=== PATIENT | female | born 1985 | race Two or more races ===

== ENCOUNTER 2018-11-05 16:50 | Emergency (ER) | payer SELFPAY ==
[~2018-11-05] VITALS: Ht 152.4 cm; Wt 56.7 kg
--- NOTE | 2018-11-05 16:52 | NUR ---
ED Nurse Note: Patient brought in by ambulance [id number] from friend's house c/o anxiety for 1 hour. patient is alert awake x4 ambulatory.
[2018-11-05] MEDS ORDERED: FLUOXETINE HCL10 MG ORAL (16:53)
--- NOTE | 2018-11-05 17:14 | NUR ---
ED Nurse Note: [facility] SENT TO LAB
[2018-11-05 17:46] LABS: APPEARANCE,URINE CLEAR; BILIRUBIN, URINE NEGATIVE (NEGATIVE); COLOR,URINE PALE YELLOW; GLUCOSE, URINE (UA) NEGATIVE (NEGATIVE); KETONES,URINE NEGATIVE (NEGATIVE); LEUKOCYTE ESTERASE ,URINE NEGATIVE (NEGATIVE); NITRITE,URINE NEGATIVE (NEGATIVE); PH,URINE 8 (4.5-8.0); PROTEIN,URINE NEGATIVE (NEGATIVE); UROBILINOGEN,URINE NORMAL MG/DL (0.0-1.0)
[2018-11-05 17:51] LABS: BASOPHILS % (AUTO) 0.8 % (0.0-2.0); EOSINOPHILS % (AUTO) 0.2 % (0.0-3.0); HEMATOCRIT 37.5 % (37.0-47.0); LYMPHOCYTES % (AUTO) 30.5 % (20.0-45.0); MEAN CORPUSCULAR VOLUME 88 FL (80-99); MONOCYTES % (AUTO) 6.9 % (1.0-10.0); NEUTROPHILS % (AUTO) 61.6 % (45.0-75.0); PLATELET COUNT 222 K/UL (150-450); RED BLOOD COUNT 4.27 M/UL (4.20-5.40); RED CELL DISTRIBUTION WIDTH 10.3 % (11.6-14.8); WHITE BLOOD COUNT 7.6 K/UL (4.8-10.8)
[2018-11-05 17:55] LABS: ANION GAP 12 mmol/L (5-15); BLOOD UREA NITROGEN 11 mg/dL (7-18); CALCIUM 9.7 MG/DL (8.5-10.1); CARBON DIOXIDE 23 MMOL/L (21-32); CHLORIDE 108 MMOL/L (98-107); CREATININE 0.6 MG/DL (0.55-1.30); POTASSIUM 3.5 MMOL/L (3.5-5.1); SODIUM 143 MMOL/L (136-145)
[2018-11-05 17:59] LABS: ALANINE AMINOTRANSFERASE 14 U/L (12-78); ALBUMIN/GLOBULIN RATIO 1.3 (1.0-2.7); ALKALINE PHOSPHATASE 38 U/L (46-116); ASPARTATE AMINO TRANSFERASE 13 U/L (15-37); BILIRUBIN,TOTAL 0.5 MG/DL (0.2-1.0)
--- NOTE | 2018-11-05 18:16 | Emergency Room Report ---
History of Present Illness General Chief Complaint: General Complaint Source: Medical Record Present Illness HPI 33-year-old female with no significant past medical history brought in by the paramedics, crying and complaining of extreme anxiety. Patient denies suicidal homicidal ideation. Reports that she was sitting at home and all of a sudden started feeling overly anxious, palpitation, shortness of breath chest pain pain radiation. Denies dizziness, abdominal pain, nausea vomiting. Denies any drug intake, tobacco smoke, or smoking tobacco. Patient reports that her mouth has been dry and feels numbness in her face however has no motor or sensory deficits. No unilateral or generalized weakness noted. Denies blurry vision, photophobia, head injury. Denies history of diabetes, denies history of multiple sclerosis, TIA, and CVA. Patient does not have any stairs patient speaks in full sentences. Reports that she has a history of anxiety however has not been under the care of psychiatrist in years. Allergies: Coded Allergies: No Known Allergies (Unverified , 11/05/18) Patient History Past Medical History: see triage record Past Surgical History: unable to obtain Pertinent Family History: none Now: No Immunizations: UTD Reviewed Nursing Documentation: PMH: Agreed; PSxH: Agreed Nursing Documentation-PMH Past Medical History: No History, Except For Review of Systems All Other Systems: negative except mentioned in HPI Physical Exam Vital Signs Date Time Temp Pulse Resp B/P (MAP) Pulse Ox O2 Delivery O2 Flow Rate FiO2 11/05/18 16:45 97.5 112 19 145/86 (105) 99 Room Air Sp02 EP Interpretation: reviewed, normal General Appearance: no apparent distress, alert, GCS 15, non-toxic Head: normocephalic, atraumatic Eyes: bilateral eye normal inspection, bilateral eye PERRL ENT: hearing grossly normal, normal pharynx, no angioedema, normal voice Neck: full range of motion, supple, supple/symm/no masses Respiratory: chest non-tender, lungs clear, normal breath sounds, no rhonchi, no wheezing, speaking full sentences Cardiovascular #1: regular rate, rhythm, no edema, no murmur, normal capillary refill Gastrointestinal: normal bowel sounds, non tender, soft, non-distended, no guarding, no rebound Genitourinary: normal inspection, no CVA tenderness Musculoskeletal: back normal, gait/station normal, normal range of motion, non- tender, calf tenderness Neurologic: alert, oriented x3, responsive, motor strength/tone normal, sensory intact, speech normal, no Babinski Psychiatric: judgement/insight normal, memory normal, mood/affect normal, no suicidal/homicidal ideation Skin: no rash Lymphatic: normal inspection, no adenopathy Medical Decision Making PA Attestation All my diagnosis and treatment plans were reviewed ad discussed with my supervising physician Dr. Xiong Diagnostic Impression: Primary Impression: Anxiety attack Additional Impression: Tetrahydrocannabinol (THC) use disorder, mild, abuse ER Course 33-year-old female with no significant past medical history brought in by the paramedics, crying and complaining of extreme anxiety. Patient denies suicidal homicidal ideation. Reports that she was sitting at home and all of a sudden started feeling overly anxious, palpitation, shortness of breath chest pain pain radiation. Denies dizziness, abdominal pain, nausea vomiting. Denies any drug intake, tobacco smoke, or smoking tobacco. Patient reports that her mouth has been dry and feels numbness in her face however has no motor or sensory deficits. No unilateral or generalized weakness noted. Denies blurry vision, photophobia, head injury. Denies history of diabetes, denies history of multiple sclerosis, TIA, and CVA. Patient does not have any stairs patient speaks in full sentences. Reports that she has a history of anxiety however has not been under the care of psychiatrist in years. Ddx considered but are not limited to: generalized anxiety disorder, panic attack, depression with psychotic feature, bipolar disorder, drug overdose Vital signs: are WNL, pt. is afebrile H&PE are most consistent with: THC use, anxiety, ORDERS: CBC, CMP, UA, tox screen, chest x-ray, EKG, ED INTERVENTIONS: NS bolus DISCHARGE: At this time pt. is stable for d/c to home. Will provide printed patient care instructions, and any necessary prescriptions. Care plan and follow up instructions have been discussed with the patient prior to discharge. Patient to follow-up with her primary care provider if worsening symptoms return to the emergency room gave patient list of mental health institution this she did go to. Patient denies use of THC however I explained to her and different ways of getting in her explained to her. No anxiety medication given. Patient stable time of discharge. I advised her to follow-up with neurologist if symptoms continue to rule out multiple sclerosis EKG Diagnostic Results Rate: normal Rhythm: NSR ST Segments: no acute changes Other Impression No acute ST changes Chest X-Ray Diagnostic Results Chest X-Ray Diagnostic Results : Chest X-Ray Ordered: Yes # of Views/Limited/Complete: 1 View Indication: Shortness of Breath EP Interpretation: Yes PA Xray: Interpretation reviewed, by supervising MD, and agrees with findings. Interpretation: no consolidation, no effusion, no pneumothorax Impression: No acute disease Electronically Signed by: Carmina Mejía PA-C Last Vital Signs Date Time Temp Pulse Resp B/P (MAP) Pulse Ox O2 Delivery O2 Flow Rate FiO2 11/05/18 16:45 97.5 112 19 145/86 (105) 99 Room Air Disposition: HOME, SELF-CARE Condition: Stable Patient Instructions: Generalized Anxiety Disorder Additional Instructions: Take medication as directed follow-up with your primary care provider and to go to mental health facilities for further assessment. Carmina Hernandez Nov 05, 2018 18:16
[2018-11-05 18:54] VITALS: BP 112/72
[2018-11-05 18:55] VITALS: BP 112/72
--- NOTE | 2018-11-05 18:56 | NUR ---
ER DISCHARGE NOTE: Patient is cleared to be discharged per CONNOR RODAS, pt is aox4, on room air, with stable vital signs. pt was given dc and prescription instructions, pt was able to verbalize understanding, pt id band and iv site removed without complications. pt is able to ambulate with steady gait. pt took all belongings.
--- NOTE | 2018-11-06 11:37 | Diagnostic Imaging Report ---
Indication: Chest pain Comparison: None A single view chest radiograph was obtained. Findings: Cardiomediastinal appearance is within normal limits for age. The lungs are clear but hypoinflated and suboptimally evaluated.. Pulmonary vascularity is appropriate. The diaphragmatic contour is smooth and costophrenic angles are sharp. No pleural effusions are identified. The bones are unremarkable. Impression: No acute findings
== END 2018-11-05 18:55 | disposition home or self-care (01) ==
LOC: EDBD 16:50 → EMR 17:24
DX: F12.180 Cannabis abuse with cannabis-induced anxiety disorder (principal); F41.1 Generalized anxiety disorder; R07.9 Chest pain, unspecified
CPT/HCPCS: 36415; 71045; 80053; 80307; 81001; 81025; 84484; 85025; 93005; 96360; 99284